=== PATIENT | female | born 1980 ===

== ENCOUNTER 2022-06-19 06:53 | Day surgery (SDC) | payer OTHER ==
[~2022-06-19] VITALS: Ht 167.6 cm; Wt 114.9 kg
[2022-06-19] VITALS (8 sets, daily range): BP systolic 110–134; BP diastolic 55–84; PULSE 65–83; TEMP 97.5–98.4
[2022-06-19] MEDS ORDERED: CARTIA XT240 MG PO (07:12)
[2022-06-19] MEDS ORDERED: CELEXA 20MG20 MG/TAB PO (07:13)
[2022-06-19] MEDS ORDERED: ALDACTONE 25MG25 M1 PO (07:13)
--- NOTE | 2022-06-19 08:29 | NUR ---
0825 - Verbal fluid orders recieved from TENA for LR.
--- NOTE | 2022-06-19 09:33 | NUR ---
3035 - Millie RN contacted RN; procedure has started and PT is doing well, RN relayed message to PT visitor per request.
--- NOTE | 2022-06-19 10:56 | NUR ---
1050 - PT arrives w/ Coral ADAME from PACU; drowsy but oriented. PT sleeps unless aroused and can answer simple questions. Monitors applied and VSS. PT is tolerating ice water, crackers provided. Verbal report obtained. Visitor remains present; call xiong within reach. Side rails x2. Site is clean, dry and intact; edges are well approximated. PT is resting w/ eyes closed; warm blankets provided.
--- NOTE | 2022-06-19 11:04 | NUR ---
1105 - Vitals obtained. PT continues to rest w/ eyes closed. PT continues to tolerate ice water. Call xiong remains within reach if needed.
[2022-06-19] MEDS ORDERED: PERCOCET 325 MG1 TA2 PO (11:11)
[2022-06-19] MEDS ORDERED: MOTRIN 600600 MG/TAB PO (11:11)
--- NOTE | 2022-06-19 11:27 | NUR ---
1120 - PT is awake and alert, oriented x4. PT provided additional snack; denies nausea. PT assisted w/ repositioning in bed by RN. PT rates pain 4/10 but denied needing intervention. Call xiong remains within reach; side rails x2. Visitor remains present.
--- NOTE | 2022-06-19 12:12 | NUR ---
1135 - VSS. Call xiong remains within reach. 1205 - VSS. Call xiong remains within reach. Side rails x2.
--- NOTE | 2022-06-19 12:41 | NUR ---
1235 - VSS. PT voiced need to use the bathroom. IV and monitors disconnected. PT assisted to bedside, where she sat, before ambulating to bathroom 1:1 w/ RN. Gait is steady and the PT voided, then back to bed; expressed desire to be discharged. Call xiong remains within reach if needed. Side rails x1.
--- NOTE | 2022-06-19 12:53 | NUR ---
1245 - IV discontinued. Catheter tip intact and pressure bandage applied; no redness/swelling noted. DC instructions and educational material reviewed w/ PT who verbalized understanding and signed the related paperwork. Questions answered to PT satisfaction. PT refused RN assistance changing into personal clothes; call xiong remains within reach and visitor remains present. PT assisted to bedside by RN.
--- NOTE | 2022-06-19 13:01 | NUR ---
1300 - PT states pain 5/10 and requested pain medication; RN provided PO medication as directed.
--- NOTE | 2022-06-19 13:15 | NUR ---
1310 - PT dismissed from [facility] [place] via wheelchair to the PT entrence by Victoria ADAME; PT has DC packet and personal belongings. PT was transferred into the care of her , who is driving private car.
[2022-06-19] MEDS ORDERED: ZOFRAN ODT4 MG PO (16:52)
== END 2022-06-19 13:15 | disposition home or self-care (01) ==
LOC: SDCO 06:53
DX: K42.9 Umbilical hernia without obstruction or gangrene (principal)
CPT/HCPCS: C1781; J0690; J1100; J1885; J2250; J2405; J2704; J3010; J7120